=== PATIENT | male | born 1965 | race Caucasian/White ===

== ENCOUNTER → 2017-10-28 | Outpatient (CLI) | payer OTHER ==
[~2017-10-28] MED LIST: ADDERALL 20 MG20 MG; IBUPROFEN; ULTRAM50 MG PO
--- NOTE | 2017-10-28 16:53 | Diagnostic Imaging Report ---
PROCEDURE: US THYROID COMPARISON: None. INDICATIONS:Questionable Nodules TECHNIQUE: Transverse and longitudinal goss-scale sonographic images of the thyroid were obtained and supplemented with color doppler. FINDINGS: Right thyroid lobe: 5.9 x 2.0 x 1.9 cm. Heterogeneous echogenicity. Normal vascularity. 1.2 x 0.8 x 1.0 cm slightly hypoechoic solid mildly heterogeneous, nodular lesion in the mid aspect of the right thyroid lobe. No microcalcifications. No increased vascularity. Left thyroid lobe: 5.8 x 1.8 x 1.8 cm. Heterogeneous echogenicity. Normal vascularity. No focal lesions. Isthmus: 0.5 cm, slightly enlarged. Heterogeneous echogenicity. No focal lesions. CONCLUSION: 1. Normal bilateral thyroid lobe size. Slight enlargement of the isthmus. 2. Heterogeneous echogenicity of the thyroid gland. This may be seen with thyroiditis, particularly Shabbir's. Correlate with serum TSH. 2. A 1.2 cm nodular lesion in the mid aspect of the right thyroid lobe may represent a nodule versus focal heterogeneous thyroid tissue, given the overall heterogeneous echogenicity of the thyroid gland. No suspicious microcalcifications. Recommend followup thyroid ultrasound in 6-12 months. Suresh Garcaí M.D. Dictated by: Suresh García M.D. on 10/28/2017 at 16:54 Electronically approved by: Suresh García M.D. on 10/28/2017 at 16:54
== END ==
LOC: US 15:35
PROVIDERS: ATTEND Family Medicine
DX: R94.6 Abnormal results of thyroid function studies (principal)
CPT/HCPCS: 76536

== ENCOUNTER → 2017-11-22 | Day surgery (SDC) | payer OTHER ==
[~2017-11-22] MED LIST changes: +AMBIEN CR12.5 MG PO; +FENTANYL CITRATE/PF 100MCG/2 ML INJ ONE; +HYOSCYAMINE SULFATE 0.5 MG/ML AMP ONE; +LEVOTHYROXINE50 MCG PO; +MIDAZOLAM HCL 2 MG/2 ML VIAL ONE; +PROPOFOL IV EMULSION 10 MG/ML 50 ML VIAL ONE
--- NOTE | 2017-11-22 14:33 | Operative Report ---
DATE OF PROCEDURE: November 22, 2017 REFERRING PHYSICIAN: Dr. Jack Alcantara PROCEDURE PERFORMED: Colonoscopy and polypectomy with biopsies. INDICATIONS FOR COLONOSCOPY: Colorectal cancer screening. Personal history of colon polyps and positive occult blood in the stool. MEDICATION: Patient was done under MAC. Please see anesthesiologist's note. PROCEDURE: With the patient in the left lateral decubitus position, the flexible fiberoptic Olympus colonoscope was inserted into the rectum with ease and advanced all the way to the cecum. Prep overall was suboptimal with retained stools in the colon. The scope was then withdrawn slowly. Whatever was visualized of the mucosa overlying the cecum, ascending, and transverse grossly appeared to be within normal limits. There were some low-grade inflammatory changes noted in the distal transverse as well as the descending and the sigmoid colon. Random biopsies were obtained. The scope was then retroflexed into the distal rectum. A minute polyp was noted in the distal rectum that was hot biopsied. Small size internal hemorrhoids were noted, none of which was actively bleeding. The scope was then straightened out. The scope was subsequently withdrawn. Patient tolerated the procedure well. IMPRESSION 1. Suboptimal prep. 2. Rule out mild, low-grade, patchy, left-sided colitis. 3. Rectal polyp, distal rectum, hot biopsied. 4. Internal hemorrhoids, none actively bleeding. PLAN: Follow up histology. Initiate VSL #3 DS 1 p.o. daily. Patient will need a followup colonoscopy in 3 years. Job#: [id number] cc:JACK ALCANTARA DO
--- OUTSIDE RECORDS SUMMARY | 2017-11-24 11:16 | XMS REPORT ---
Author Author [facility] Address Unknown Phone Unavailable Care Team Providers Care Community Nutrition Educator Name Role Phone RANDOLPH ALCANTARA Unavailable Unavailable Problems This patient has no known problems. Allergies, Adverse Reactions, Alerts This patient has no known allergies or adverse reactions. Medications This patient has no known medications. Results Test Description Test Time Test Comments Text Results Atomic Results Result Comments US THYROID [place] [address] Patient Name: LEESA SIERRA MR #: [id number] : 1965 Age/Sex: 52/M Req # : [id number] Adm Physician: Ordered by: RANDOLPH ALCANTARA DO Report #: [id number] Location: US Room/Bed: Procedure: [id number] US/US THYROID Exam Date: 10/28/17 Exam Time: 1548 REPORT STATUS: Signed PROCEDURE: US THYROID COMPARISON: None. INDICATIONS: Questionable Nodules TECHNIQUE: Transverse and longitudinal goss-scale sonographic images of the thyroid were obtained and supplemented with color doppler. FINDINGS: Right thyroid lobe: 5.9 x 2.0 x 1.9 cm. Heterogeneous echogenicity. Normal vascularity. 1.2 x 0.8 x 1.0 cm slightly hypoechoic solid mildly heterogeneous, nodular lesion in the mid aspect of the right thyroid lobe. No microcalcifications. No increased vascularity. Left thyroid lobe: 5.8 x 1.8 x 1.8 cm. Heterogeneous echogenicity. Normal vascularity. No focal lesions. Isthmus: 0.5 cm, slightly enlarged. Heterogeneous echogenicity. No focal lesions. CONCLUSION: 1. Normal bilateral thyroid lobe size. Slight enlargement of the isthmus. 2. Heterogeneous echogenicity of the thyroid gland. This may be seen with thyroiditis, particularly Shabbir's. Correlate with serum TSH. 2. A 1.2 cm nodular lesion in the mid aspect of the right thyroid lobe may represent a nodule versus focal heterogeneous thyroid tissue, given the overall heterogeneous echogenicity of the thyroid gland. No suspicious microcalcifications. Recommend followup thyroid ultrasound in 6-12 months. Arnold García M.D. Dictated by: Arnold García M.D. on at 16:54 Electronically approved by: Arnold García M.D. on 10/28/2017 at 16:54 Dictated By: ARNOLD GARCÍA MD Transcribed By: DONI on 10/28/171653 COPY TO: RANDOLPH ALCANTARA DO
== END | disposition home or self-care (01) ==
LOC: OR 10:20
PROVIDERS: ATTEND Internal Medicine Gastroenterology
DX: R19.5 Other fecal abnormalities (principal); D12.8 Benign neoplasm of rectum; K64.8 Other hemorrhoids; K59.00 Constipation, unspecified; F90.9 Attention-deficit hyperactivity disorder, unspecified type; E03.9 Hypothyroidism, unspecified; E06.3 Autoimmune thyroiditis; Z01.810 Encounter for preprocedural cardiovascular examination; Z68.30 Body mass index [BMI] 30.0-30.9, adult
CPT/HCPCS: 45380; 45384; 93005; J1980; J2250; 45378

== ENCOUNTER → 2017-11-25 | Outpatient (CLI) | payer OTHER ==
[~2017-11-25] MED LIST changes: -FENTANYL CITRATE/PF 100MCG/2 ML INJ ONE; -HYOSCYAMINE SULFATE 0.5 MG/ML AMP ONE; -MIDAZOLAM HCL 2 MG/2 ML VIAL ONE; -PROPOFOL IV EMULSION 10 MG/ML 50 ML VIAL ONE
--- NOTE | 2017-11-25 11:15 | Diagnostic Imaging Report ---
PROCEDURE: SMALL BOWEL SERIES COMPARISON: None. INDICATIONS: POSITIVE BLOOD OCCULT FINDINGS: Aquatic Physiotherapist film of the abdomen reveals an 8 mm left lower pole renal stone. Degenerative spurring of the upper lumbar spine. The patient was given barium to drink and sequential images of the abdomen were obtained through 1 hour and 15 minutes. Spot images of the small bowel and terminal ileum were then obtained. Small bowel motility and caliber are normal. There is no evidence of mass or mucosal abnormality. The terminal ileum is difficult to isolate. Fluoroscopy time: 0.9 minutes Total dose: 138.03 mGy CONCLUSION: 1. Normal small bowel follow-through. 2. Left lower pole renal stone. Praveen Araiza D.O. Dictated by: Praveen Araiza D.O. on 11/25/2017 at 11:16 Electronically approved by: Praveen Araiza D.O. on 11/25/2017 at 11:16
== END ==
LOC: DX 08:11
PROVIDERS: ATTEND Internal Medicine Gastroenterology
DX: R19.5 Other fecal abnormalities (principal)
CPT/HCPCS: 74250

== ENCOUNTER → 2021-05-26 | Day surgery (SDC) | payer OTHER ==
[~2021-05-26] MED LIST changes: +MOBIC7.5 MG PO; +PROPOFOL IV EMULSION 10 MG/ML 20 ML VIAL ONE
[2021-05-26 09:05] VITALS: BP 129/88
== END | disposition home or self-care (01) ==
LOC: OR 06:52
PROVIDERS: ATTEND Internal Medicine Gastroenterology
DX: K22.10 Ulcer of esophagus without bleeding (principal); K29.70 Gastritis, unspecified, without bleeding; K44.9 Diaphragmatic hernia without obstruction or gangrene; K31.7 Polyp of stomach and duodenum; K20.0 Eosinophilic esophagitis; K62.1 Rectal polyp; K64.8 Other hemorrhoids; K25.9 Gastric ulcer, unspecified as acute or chronic, without hemorrhage or perforation; R13.19 Other dysphagia; Z86.010 Personal history of colon polyps; Z68.32 Body mass index [BMI] 32.0-32.9, adult; E06.3 Autoimmune thyroiditis; F90.9 Attention-deficit hyperactivity disorder, unspecified type; Z01.810 Encounter for preprocedural cardiovascular examination; Z01.812 Encounter for preprocedural laboratory examination; Z20.822 Contact with and (suspected) exposure to COVID-19
CPT/HCPCS: 43239; 43450; 45385; 93005; C9113; J2704; U0002

== ENCOUNTER → 2021-07-30 | Day surgery (SDC) | payer OTHER ==
[~2021-07-30] MED LIST changes: +FENTANYL CITRATE/PF 100MCG/2 ML INJ ONE; +LIDOCAINE HCL 2% LOCAL INJ 5 ML SDV VIAL INJ ONE; +MIDAZOLAM HCL 2 MG/2 ML VIAL ONE; +PROTONIX20 MG PO
[2021-07-30 09:33] VITALS: BP 114/72
== END | disposition home or self-care (01) ==
LOC: OR 07:12
PROVIDERS: ATTEND Internal Medicine Gastroenterology
DX: K20.0 Eosinophilic esophagitis (principal); K44.9 Diaphragmatic hernia without obstruction or gangrene; K29.70 Gastritis, unspecified, without bleeding; K21.9 Gastro-esophageal reflux disease without esophagitis; E66.9 Obesity, unspecified; F90.9 Attention-deficit hyperactivity disorder, unspecified type; Z01.812 Encounter for preprocedural laboratory examination; Z20.822 Contact with and (suspected) exposure to COVID-19; Z79.899 Other long term (current) drug therapy; Z68.32 Body mass index [BMI] 32.0-32.9, adult
CPT/HCPCS: 43239; C9113; J2001; J2250; J2704; J3010; U0002